=== PATIENT | female | born 1945 | race Caucasian/White ===

== ENCOUNTER → 2016-10-07 | Outpatient (CLI) | payer OTHER ==
[~2016-10-07] MED LIST: ASPCH81X PO; BNT10 PO; BUPR100T8 PO; CIPR250T3 PO; CPR500 PO; CRAN1TAB PO; CYAN3INJ IM; ESCI1TAB10 PO; LINA1CAP PO; LPT40 PO; METF-384 PO; MISCCAP80 PO; NYSCR30 EXT; TRAZ50TA35 PO; VSC/5 PO; ZNT150 PO
--- NOTE | 2016-10-07 11:04 | DIAGNOSTIC IMAGING REPORT ---
KUB CLINICAL HISTORY: N20.0 [id number] COMPARISON STUDY: 03/24/2016 FINDINGS: The renal shadows are partially secured by overlying bowel gas and fecal material. There is no pathologic bowel dilatation. There is a stable right pelvic basin calcification likely representing a phlebolith. There is a 5 mm left renal calcification likely representing a calculus. IMPRESSION: 1. Left-sided nephrolithiasis 2. No evidence of pathologic bowel dilatation Electronically signed by: Moses Hutchison M.D. 10/07/2016 11:02 AM Dictated Date/Time: 10/07/2016 11:01 AM
== END | disposition home or self-care (01) ==
LOC: C.RAD 10:25
PROVIDERS: ATTEND Nurse Practitioner Family
DX: N20.0 Calculus of kidney (principal)

== ENCOUNTER 2017-03-31 11:13 | Inpatient (IN) | payer OTHER ==
[~2017-03-31] VITALS: Ht 160 cm; Wt 72.0 kg
[~2017-03-31 11:13] MED LIST changes: -BNT10 PO; -CIPR250T3 PO; -CPR500 PO; -ZNT150 PO
[2017-03-31] MEDS ORDERED: SODIUM CHLORIDE 0.9% 1000ML 1,000 ML IV STA (11:33)
[2017-03-31] MEDS ORDERED: CIPR250T3 PO (11:35)
--- NOTE | 2017-03-31 12:20 | DIAGNOSTIC IMAGING REPORT ---
CHEST ONE VIEW PORTABLE CLINICAL HISTORY: Flu symptoms. COMPARISON STUDY: Chest radiograph March 24, 2016. FINDINGS: Lung volumes are normal. No consolidation is identified. No pneumothorax or pleural effusion is present. Cardiomediastinal silhouette is stable. Pulmonary vascularity is normal. IMPRESSION: No acute cardiopulmonary findings. Electronically signed by: Chris Rivera M.D. 03/31/2017 12:19 PM Dictated Date/Time: 03/31/2017 12:19 PM
[2017-03-31 12:29] LABS: BASO % 0.5 %; BASO ABS # 0.05 K/uL (0-0.2); COMPLETE YES; EOS % 1.7 %; HEMATOCRIT 36.2 % (37-47); IG% 0.3 %; LYMPH % 22.5 %; LYMPH ABS # 2.44 K/uL (1.2-3.4); MEAN CELL VOLUME 87.2 fL (80-100); MEAN CORPUSCULAR HEMOGLOBIN 29.6 pg (25-34); MEAN PLATELET VOLUME 8.7 fL (7.4-10.4); MONO % 7.7 %; NEUT % 67.3 %; PLATELET COUNT 332 K/uL (130-400); RED BLOOD COUNT 4.15 M/uL (4.2-5.4); WHITE BLOOD COUNT 10.85 K/uL (4.8-10.8)
[2017-03-31 12:42] LABS: PROTHROMBIN TIME (PATIENT) 10.3 SECONDS (9.0-12.0)
[2017-03-31 12:47] LABS: BUN/CREATININE RATIO 17.3 (10-20); CALCIUM 8.8 mg/dl (8.5-10.1); CREATININE 1.3 mg/dl (0.60-1.20); MAGNESIUM 1.6 mg/dl (1.8-2.4); POTASSIUM 4.2 mmol/L (3.5-5.1)
[2017-03-31 12:58] LABS: THYROID STIMULATING HORMONE 1.57 uIu/ml (0.300-4.500)
--- NOTE | 2017-03-31 13:43 | EMERGENCY ROOM VISIT NOTE ---
History Report prepared by Derrick: Zack Etienne Under the Supervision of: Dr. Miguel Ángel Amezquita M.D. First contact with patient: 11:33 Chief Complaint: FLU LIKE SX Stated Complaint: FLU History of Present Illness The patient is a 71 year old female who presents to the Emergency Room with complaints of constant flu-like symptoms for the past 6 days. The patient states that she is fatigued, dizzy, nauseous, weak, short of breath and she has back pain, abdominal pain, chest pain. She additionally states that she is currently on Cipro for a bladder infection and she has kidney stones. She is not currently on blood thinners. The patient states that she has not been able to eat very well due to the nausea. Pt denies LOC, headache, fevers, chills, diaphoresis, visual changes, neck pain, cough, vomiting, melena, hematochezia, urinary symptoms, numbness, lymphadenopathy, rash, or other complaints. Source of History: patient Onset: six days ago Position: other (global) Quality: other (flu-like symptoms) Timing: constant Associated Symptoms: + chest pain, + SOB, + nausea, + abdominal pain, + back pain, + fatigue Review of Systems See HPI for pertinent positives and negatives. A total of ten systems were reviewed and were otherwise negative. 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 (13) Hypertension Nos (14) Hypomagnesemia (15) Kidney stone (16) Nephrolithiasis (17) Neuropathy (18) Personal History Of Colonic Polyps (19) PICC line infection (20) Pyelonephritis (21) Renal & Ureteral Dis Nos (22) Right knee pain (23) Sepsis (24) Urinary tract infection (25) Urinary tract infection (26) Urinary tract infection (27) Urinary tract infection (28) UTI (urinary tract infection) Surgical Problems: (1) Post-operative state Family History Diabetes mellitus FH: gallbladder disease FH: heart disease Hypertension Social History Smoking Status: Never Smoker Alcohol Use: occasionally Drug Use: none Marital Status: Housing Status: lives with family Occupation Status: retired Current/Historical Medications Scheduled Aspirin (Aspirin Chewable), 81 MG PO QAM Atorvastatin (Atorvastatin Calcium), 40 MG PO HS Bupropion (Wellbutrin Sr), 100 MG PO QAM Ciprofloxacin (Cipro), 250 MG PO BID Cyanocobalamin (Vitamin B-12 Inj), 1 ML IM MONTHLY Escitalopram Oxalate (Lexapro), 20 MG PO QAM Linaclotide (Linzess), 145 MCG PO DAILY Metformin Hcl (Glucophage), 1,000 MG PO BID Probiotic Product (Probiotic), 1 CAP PO QAM Trazodone Hcl (Trazodone), 50 MG PO HS Scheduled PRN Nystatin (Nystatin Cream), 0 EXT UD PRN for PRN Solifenacin (Vesicare), 5 MG PO QAM PRN for PRN Allergies Coded Allergies: Erythromycin (Verified Adverse Reaction, Unknown, NAUSEATED, 03/31/17) Hydrocodone (Verified Adverse Reaction, Unknown, DIZZINESS, FAINTING, ) Meperidine (Verified Adverse Reaction, Unknown, DROP IN BP, FAINTING, ) Sulfamethoxazole w/Trimethoprim (Verified Adverse Reaction, Unknown, GI SYMPTOMS, 03/31/17) Physical Exam Vital Signs Date Time Temp Pulse Resp B/P (MAP) Pulse Ox O2 Delivery O2 Flow Rate FiO2 03/31/17 16:41 Room Air 03/31/17 16:18 80 18 156/83 98 Room Air 03/31/17 13:50 88 18 132/82 95 Room Air 03/31/17 12:17 86 132/76 88 137/88 105 117/75 03/31/17 11:17 36.6 113 20 131/80 96 Room Air Physical Exam GENERAL: Awake, alert, uncomfortable-appearing, in no distress HENT: TMs are normal. Normocephalic, atraumatic. Oropharynx unremarkable. EYES: Normal conjunctiva. Sclera non-icteric. NECK: Supple. No nuchal rigidity. FROM. No JVD. RESPIRATORY: Clear to auscultation. CARDIAC: Regular rate, normal rhythm. Extremities warm and well perfused. Pulses equal. ABDOMEN: Soft, non-distended. No tenderness to palpation. No rebound or guarding. No masses. RECTAL: Deferred. MUSCULOSKELETAL: Chest examination reveals no tenderness. The back is symmetrical on inspection without obvious abnormality. There is no CVA tenderness to palpation. No joint edema. LOWER EXTREMITIES: Calves are equal size bilaterally and non-tender. No edema. No discoloration. NEURO: Normal sensorium. No sensory or motor deficits noted. SKIN: No rash or jaundice noted. Medical Decision & Procedures ER Provider Diagnostic Interpretation: Radiology results as stated below per my review and radiologist interpretation: CHEST ONE VIEW PORTABLE CLINICAL HISTORY: Flu symptoms. COMPARISON STUDY: Chest radiograph March 24, 2016. FINDINGS: Lung volumes are normal. No consolidation is identified. No pneumothorax or pleural effusion is present. Cardiomediastinal silhouette is stable. Pulmonary vascularity is normal. IMPRESSION: No acute cardiopulmonary findings. Electronically signed by: Chris Rivera M.D. 03/31/2017 12:19 PM Dictated Date/Time: 03/31/2017 12:19 PM ABD/PELVIS WITHOUT FOR STONE CLINICAL HISTORY: 71 years-old Female presenting with back pain, UTI, h/o stones. TECHNIQUE: Multidetector CT of the abdomen and pelvis was performed without the use of intravenous contrast. IV contrast: None. A dose lowering technique was used consistent with the principles of ALARA (as low as reasonably achievable). COMPARISON: 12/05/2015. CT DOSE (mGy.cm): The estimated cumulative dose is 637.00 mGycm. FINDINGS: Camera Tuning Engineer topogram: Unremarkable. Lung bases: Minimal dependent changes likely atelectasis. Mitral annular calcification. Normal heart size. No pericardial or pleural effusion. Liver: Normal morphology. Normal density. Biliary: Mild prominence of central intrahepatic bile ducts. Gallbladder may contain sludge. Pancreas: Mild parenchymal atrophy. Spleen: Normal noncontrast appearance. Adrenal glands: Normal noncontrast appearance. Kidneys and ureters: Chronic atrophy of the left renal cortex most prominently at the posterior upper pole, which could suggest reflux uropathy. Bilateral mild urothelial thickening noted. Bilateral nonobstructing renal calculi, the largest on the right measuring 4 mm and on the left measuring 6 mm. Subcentimeter focal hyperdense lesion posteriorly at the interpolar to lower pole of the right kidney is unchanged in size (series 3 image 150), measuring 7 mm. No hydronephrosis. Previously noted obstructing calculus in the proximal left ureter is no longer present. No hydroureter or periureteral fat stranding. Bladder: Normal. No bladder calculi. Pelvic organs: Calcification in the uterus may relate to presence of fibroids or vascular calcification. Normal noncontrast appearance of the ovaries. Bowel: Diverticulosis of the sigmoid colon. Mild stool burden throughout normal caliber colon. Normal appendix. No bowel obstruction. Prominent duodenal diverticulum the level of the pancreatic head. No associated inflammatory change. Peritoneal cavity: No free fluid or intraperitoneal gas. Lymph nodes: No gross lymphadenopathy allowing for noncontrast technique. Vasculature: Atherosclerosis of the normal caliber abdominal aorta. Abdominal wall: Normal. Musculoskeletal: Degenerative changes of the spine. Mild osteopenia. IMPRESSION: 1. Bilateral nephrolithiasis. No hydronephrosis. Previously noted obstructing proximal left ureteral calculus is no longer present. 2. Suggestion of mild urothelial thickening bilaterally. This raises concern for upper tract infection. Correlate with urinalysis. 3. Extensive left renal cortical scarring which could suggest reflux uropathy. Electronically signed by: Randy Graham M.D. 03/31/2017 3:23 PM Dictated Date/Time: 03/31/2017 3:14 PM Laboratory Results 03/31/17 12:01 Red Blood Count 4.15, Mean Corpuscular Volume 87.2, Mean Corpuscular Hemoglobin 29.6, Mean Corpuscular Hemoglobin Concent 34.0, Mean Platelet Volume 8.7, Neutrophils (%) (Auto) 67.3, Lymphocytes (%) (Auto) 22.5, Monocytes (%) (Auto) 7.7, Eosinophils (%) (Auto) 1.7, Basophils (%) (Auto) 0.5, Neutrophils # (Auto) 7.31, Lymphocytes # (Auto) 2.44, Monocytes # (Auto) 0.84, Eosinophils # (Auto) 0.18, Basophils # (Auto) 0.05 03/31/17 12:01 Test 03/31/17 12:00 03/31/17 12:01 03/31/17 14:00 Influenza Type A Antigen Neg for Influ A (NEG) Influenza Type B Antigen Neg for Influ B (NEG) White Blood Count 10.85 K/uL (4.8-10.8) Red Blood Count 4.15 M/uL (4.2-5.4) Hemoglobin 12.3 g/dL (12.0-16.0) Hematocrit 36.2 % (37-47) Mean Corpuscular Volume 87.2 fL (80-100) Mean Corpuscular Hemoglobin 29.6 pg (25-34) Mean Corpuscular Hemoglobin Concent 34.0 g/dl (32-36) Platelet Count 332 K/uL (130-400) Mean Platelet Volume 8.7 fL (7.4-10.4) Neutrophils (%) (Auto) 67.3 % Lymphocytes (%) (Auto) 22.5 % Monocytes (%) (Auto) 7.7 % Eosinophils (%) (Auto) 1.7 % Basophils (%) (Auto) 0.5 % Neutrophils # (Auto) 7.31 K/uL (1.4-6.5) Lymphocytes # (Auto) 2.44 K/uL (1.2-3.4) Monocytes # (Auto) 0.84 K/uL (0.11-0.59) Eosinophils # (Auto) 0.18 K/uL (0-0.5) Basophils # (Auto) 0.05 K/uL (0-0.2) RDW Standard Deviation 43.8 fL (36.4-46.3) RDW Coefficient of Variation 13.6 % (11.5-14.5) Immature Granulocyte % (Auto) 0.3 % Immature Granulocyte # (Auto) 0.03 K/uL (0.00-0.02) Prothrombin Time 10.3 SECONDS (9.0-12.0) Prothromb Time International Ratio 1.0 (0.9-1.1) Activated Partial Thromboplast Time 25.5 SECONDS (21.0-31.0) Partial Thromboplastin Ratio 1.0 Anion Gap 9.0 mmol/L (3-11) Est Creatinine Clear Calc Drug Dose 38.8 ml/min Estimated GFR () 48.5 Estimated GFR (Non- 41.8 BUN/Creatinine Ratio 17.3 (10-20) Calcium Level 8.8 mg/dl (8.5-10.1) Magnesium Level 1.6 mg/dl (1.8-2.4) Total Bilirubin 0.4 mg/dl (0.2-1) Direct Bilirubin 0.1 mg/dl (0-0.2) Aspartate Amino Transf (AST/SGOT) 11 U/L (15-37) Alanine Aminotransferase (ALT/SGPT) 13 U/L (12-78) Alkaline Phosphatase 74 U/L (45-117) Troponin I 0.038 ng/ml (0-0.045) Total Protein 7.3 gm/dl (6.4-8.2) Albumin 3.5 gm/dl (3.4-5.0) Lipase 159 U/L (73-393) Thyroid Stimulating Hormone (TSH) 1.570 uIu/ml (0.300-4.500) Urine Color YELLOW Urine Appearance CLEAR (CLEAR) Urine pH 5.0 (4.5-7.5) Urine Specific [place] 1.016 (1.000-1.030) Urine Protein NEG (NEG) Urine Glucose (UA) NEG (NEG) Urine Ketones NEG (NEG) Urine Occult Blood NEG (NEG) Urine Nitrite NEG (NEG) Urine Bilirubin NEG (NEG) Urine Urobilinogen NEG (NEG) Urine Leukocyte Esterase LARGE (NEG) Urine WBC (Auto) 10-30 /hpf (0-5) Urine RBC (Auto) 0-4 /hpf (0-4) Urine Hyaline Casts (Auto) 1-5 /lpf (0-5) Urine Epithelial Cells (Auto) >30 /lpf (0-5) Urine Bacteria (Auto) NEG (NEG) Laboratory results reviewed by me Medications Administered Medications (Trade) Dose Ordered Sig/Miah Route Start Time Stop Time Status Last Admin Dose Admin Sodium Chloride 1,000 ml @ 125 mls/hr Q8H STAT IV 03/31/17 11:33 03/31/17 18:36 DC 03/31/17 11:33 125 MLS/HR Ceftriaxone Sodium (Rocephin Inj) 1 gm NOW STAT IV 03/31/17 15:32 03/31/17 15:33 DC 03/31/17 15:44 1 GM Ondansetron HCl (Zofran Inj) 4 mg Q6H PRN IV 03/31/17 17:00 04/30/17 16:59 03/31/17 18:12 4 MG Magnesium Sulfate (Magnesium Sulfate) 1 gm STK-MED ONCE .ROUTE 03/31/17 17:09 03/31/17 17:10 DC 03/31/17 17:13 1 GM ECG Indication: other (flu-like symptoms) Rate (beats per minute): 100 Rhythm: normal sinus Findings: nonspecific-ST abn, no acute ischemic change, no ectopy ED Course 1133: Sodium Chloride 1000 ml @ 125 mls/hr IV 1153: The patient was evaluated in room C8. A complete history and physical exam was performed. 1347: I reevaluated the patient, and she was resting comfortably. 1532: Rocephin Inj 1gm IV 1610: Upon reexamination, the patient was doing well. I discussed the test results and treatment plan with her. The patient will be evaluated for further management. 1659: Discussed the patient's case with Dr. Broussard. The patient will be evaluated for further treatment and disposition. Medical Decision Triage Nursing notes reviewed. The patient's presentation and history were concerning for flu like symptoms. Etiologies such as viral syndrome, otitis, pharyngitis, pneumonia, urinary tract infection, sepsis, bacteremia, meningitis, as well as others were entertained. Patient was evaluated. Blood work was obtained. Urinalysis ordered. The patient was hydrated. Records were obtained from his her outpatient urinalysis. She has a Klebsiella UTI that is reported sensitive to Cipro. Slight leukocytosis. Chemistry panel was unremarkable. she underwent CT imaging and this revealed findings of an upper urinary tract infection. Given her pain, nausea and vomiting, and known UTI with Klebsiella I suspect that she has a pyelonephritis. The patient was given a dose of IV Rocephin. She notes she is not doing well at home and I believe will need further evaluation and management in hospital. Consultation was made with the hospitalist service. The patient was evaluated for further management. Medication Reconcilliation Current Medication List: was personally reviewed by me Blood Pressure Screening Patient's blood pressure: Elevated blood pressure Monitored by the hospitalist Consults Time Called: 161 Consulting Physician: Dr. Broussard Returned Call: [phone] Discussed the patient's case with Dr. Broussard. The patient will be evaluated for further treatment and disposition. Impression Primary Impression: Pyelonephritis Scribe Attestation The scribe's documentation has been prepared under my direction and personally reviewed by me in its entirety. I confirm that the note above accurately reflects all work, treatment, procedures, and medical decision making performed by me. Departure Information Dispostion Being Evaluated By Hospitalist Referrals No Doctor, Assigned (PCP) Patient Instructions My [facility]
[2017-03-31 14:09] LABS: MANUAL MICROSCOPIC REQUIRED? NO; REVIEW REQ? NO; URINE APPEARANCE CLEAR (CLEAR); URINE BILIRUBIN NEG (NEG); URINE COLOR YELLOW; URINE EPITHELIAL CELL AUTO >30 /lpf (0-5); URINE NITRITE NEG (NEG); URINE SPECIFIC GRAVITY 1.016 (1.000-1.030); UROBILINOGEN NEG (NEG)
--- NOTE | 2017-03-31 15:24 | DIAGNOSTIC IMAGING REPORT ---
ABD/PELVIS WITHOUT FOR STONE CLINICAL HISTORY: 71 years-old Female presenting with back pain, UTI, h/o stones. TECHNIQUE: Multidetector CT of the abdomen and pelvis was performed without the use of intravenous contrast. IV contrast: None. A dose lowering technique was used consistent with the principles of ALARA (as low as reasonably achievable). COMPARISON: 12/05/2015. CT DOSE (mGy.cm): The estimated cumulative dose is 637.00 mGycm. FINDINGS: Edi Manager topogram: Unremarkable. Lung bases: Minimal dependent changes likely atelectasis. Mitral annular calcification. Normal heart size. No pericardial or pleural effusion. Liver: Normal morphology. Normal density. Biliary: Mild prominence of central intrahepatic bile ducts. Gallbladder may contain sludge. Pancreas: Mild parenchymal atrophy. Spleen: Normal noncontrast appearance. Adrenal glands: Normal noncontrast appearance. Kidneys and ureters: Chronic atrophy of the left renal cortex most prominently at the posterior upper pole, which could suggest reflux uropathy. Bilateral mild urothelial thickening noted. Bilateral nonobstructing renal calculi, the largest on the right measuring 4 mm and on the left measuring 6 mm. Subcentimeter focal hyperdense lesion posteriorly at the interpolar to lower pole of the right kidney is unchanged in size (series 3 image 150), measuring 7 mm. No hydronephrosis. Previously noted obstructing calculus in the proximal left ureter is no longer present. No hydroureter or periureteral fat stranding. Bladder: Normal. No bladder calculi. Pelvic organs: Calcification in the uterus may relate to presence of fibroids or vascular calcification. Normal noncontrast appearance of the ovaries. Bowel: Diverticulosis of the sigmoid colon. Mild stool burden throughout normal caliber colon. Normal appendix. No bowel obstruction. Prominent duodenal diverticulum the level of the pancreatic head. No associated inflammatory change. Peritoneal cavity: No free fluid or intraperitoneal gas. Lymph nodes: No gross lymphadenopathy allowing for noncontrast technique. Vasculature: Atherosclerosis of the normal caliber abdominal aorta. Abdominal wall: Normal. Musculoskeletal: Degenerative changes of the spine. Mild osteopenia. IMPRESSION: 1. Bilateral nephrolithiasis. No hydronephrosis. Previously noted obstructing proximal left ureteral calculus is no longer present. 2. Suggestion of mild urothelial thickening bilaterally. This raises concern for upper tract infection. Correlate with urinalysis. 3. Extensive left renal cortical scarring which could suggest reflux uropathy. Electronically signed by: Randy Graham M.D. 03/31/2017 3:23 PM Dictated Date/Time: 03/31/2017 3:14 PM
[2017-03-31] MEDS ORDERED: CEFTRIAXONE SOD INJ 1 GM ADDVIAL IV STA (15:32)
[2017-03-31 16:41] VITALS: Ht 160 cm; Wt 72.0 kg
[2017-03-31] MEDS ORDERED: MAGNESIUM HYDROXIDE SUSP 30 ML UDC PO PRN (17:00)
[2017-03-31] MEDS ORDERED: POLYETHYLENE (MIRALAX) 17 GM PACK PO PRN (17:00)
[2017-03-31] MEDS ORDERED: ALUMINUM/MAGNESIUM/SIMETH (MAALOX MAX) 30 ML UDC PO PRN (17:00)
[2017-03-31] MEDS ORDERED: NYSTATIN CR 15 GM TUBE EXT PRN (17:00)
[2017-03-31] MEDS ORDERED: MAGNESIUM SULFATE 1GM / D5W 1 GM in PREMIXED IN D5W 100 ML IV ONE (17:00)
[2017-03-31] MEDS ORDERED: MAGNESIUM SULFATE 1GM / D5W 1 GM BAG ONE (17:09)
[2017-03-31] MEDS ORDERED: GLUCOSE 40% GEL 15 GM TUBE PO PRN (17:15)
[2017-03-31] MEDS ORDERED: GLUCAGON FOR INJ 1 MG VIAL SQ PRN (17:15)
[2017-03-31] MEDS ORDERED: DEXTROSE 50% 50 ML SYR IV PRN (17:15)
[2017-03-31] MEDS ORDERED: GLUCOSE 10 TABS/TUBE PO PRN (17:15)
--- NOTE | 2017-03-31 17:28 | History and Physical ---
History & Physical Date & Time of Service: Mar 31, 2017 at 17:04 Chief Complaint: FLU Primary Care Physician: Patricia Davison M.D. History of Present Illness Source: patient, family ( at bedside), clinic records, hospital records Patient is a pleasant 71 y/o female, with PMHx of HLD, T2DM, anxiety/depression , recurrent UTI, h/o kidney stones, and GERD, who presented to the ED because of flu-like symptoms x1 week. Patient notes fever/chills, abdominal cramping, N/ V/D. She notes she has a h/o recurrent UTIs. She is most recently being treated with Cipro since 03/27 by her PCP for a Klebsiella pansensitive UTI. She notes she has not been consistent w/ taking the antibiotic due to abdominal pain, N/ V. She denies any current UTI symptoms, but states she never gets symptomatic. She has eaten very little over the last weeks and admits to a 6 pound weight loss. She has had excessive diarrhea x1 week. Denies any melena/blood. She denies h/o c.diff. She recently had a dental procedure 1 month ago. She has not received her correct dentures yet, so eating has become very difficulty- she has only been eating soft foods prior to 1 week ago. She also admits to dizziness w/ changing positions quickly. Her notes many of their friends recently had a viral illness w/ associate dizziness. +diffuse body aches. +weakness. Denies any flank discomfort. Patient denies any sweats, lightheadedness, vision changes, CP, palpitations, edema, SOB, wheezing, cough, urinary symptoms, melena, numbness/tingling, anxiety/depression, active bleeding , or new skin discoloration/changes. Past Medical/Surgical History Medical Problems: HLD T2DM anxiety/depression recurrent UTI h/o kidney stones GERD h/o DVT Surgical history: Left TKA tonsillectomy lumpectomy Family History Diabetes mellitus FH: gallbladder disease FH: heart disease Hypertension Social History Smoking Status: Never Smoker Smokeless Tobacco Use: No Alcohol Use: socially Drug Use: none Marital Status: Housing status: lives with family Occupational Status: retired Immunizations History of Influenza Vaccine: Yes Influenza Vaccine Date: Mar 31, 2012 History of Tetanus Vaccine?: Unknown History of Pneumococcal: Yes Pneumococcal Date: Mar 31, 2012 History of Hepatitis B Vaccine: No Multi-Drug Resistant Organisms History of MDRO: No Allergies Coded Allergies: Erythromycin (Verified Adverse Reaction, Unknown, NAUSEATED, 03/31/17) Hydrocodone (Verified Adverse Reaction, Unknown, DIZZINESS, FAINTING, ) Meperidine (Verified Adverse Reaction, Unknown, DROP IN BP, FAINTING, ) Sulfamethoxazole w/Trimethoprim (Verified Adverse Reaction, Unknown, GI SYMPTOMS, 03/31/17) Home Medications Scheduled Aspirin (Aspirin Chewable), 81 MG PO QAM Atorvastatin (Atorvastatin Calcium), 40 MG PO HS Bupropion (Wellbutrin Sr), 100 MG PO QAM Ciprofloxacin (Cipro), 250 MG PO BID Cyanocobalamin (Vitamin B-12 Inj), 1 ML IM MONTHLY Escitalopram Oxalate (Lexapro), 20 MG PO QAM Linaclotide (Linzess), 145 MCG PO DAILY Metformin Hcl (Glucophage), 1,000 MG PO BID Probiotic Product (Probiotic), 1 CAP PO QAM Trazodone Hcl (Trazodone), 50 MG PO HS Scheduled PRN Nystatin (Nystatin Cream), 0 EXT UD PRN for PRN Solifenacin (Vesicare), 5 MG PO QAM PRN for PRN Physical Exam Vital Signs Date Time Temp Pulse Resp B/P (MAP) Pulse Ox O2 Delivery O2 Flow Rate FiO2 03/31/17 16:41 Room Air 03/31/17 16:18 80 18 156/83 98 Room Air 03/31/17 13:50 88 18 132/82 95 Room Air 03/31/17 12:17 86 132/76 88 137/88 105 117/75 03/31/17 11:17 36.6 113 20 131/80 96 Room Air General Appearance: no apparent distress Head: normocephalic, atraumatic Eyes: normal inspection, PERRL ENT: hearing grossly normal Neck: supple Respiratory/Chest: lungs clear, no respiratory distress, no accessory muscle use Cardiovascular: regular rate, rhythm Abdomen/GI: normal bowel sounds, soft, + tenderness (diffuse mild ttp ) Back: normal inspection Extremities/Musculoskelatal: no calf tenderness, no pedal edema Neurologic/Psych: alert, normal mood/affect, oriented x 3 Skin: normal color, warm/dry, no rash Diagnostics Laboratory Results Results Past 24 Hours Test 03/31/17 12:00 03/31/17 12:01 03/31/17 14:00 Range/Units Influenza Type A Antigen Neg for Influ A NEG Influenza Type B Antigen Neg for Influ B NEG White Blood Count 10.85 4.8-10.8 K/uL Red Blood Count 4.15 4.2-5.4 M/uL Hemoglobin 12.3 12.0-16.0 g/dL Hematocrit 36.2 37-47 % Mean Corpuscular Volume 87.2 80-100 fL Mean Corpuscular Hemoglobin 29.6 25-34 pg Mean Corpuscular Hemoglobin Concent 34.0 32-36 g/dl Platelet Count 332 130-400 K/uL Mean Platelet Volume 8.7 7.4-10.4 fL Neutrophils (%) (Auto) 67.3 % Lymphocytes (%) (Auto) 22.5 % Monocytes (%) (Auto) 7.7 % Eosinophils (%) (Auto) 1.7 % Basophils (%) (Auto) 0.5 % Neutrophils # (Auto) 7.31 1.4-6.5 K/uL Lymphocytes # (Auto) 2.44 1.2-3.4 K/uL Monocytes # (Auto) 0.84 0.11-0.59 K/uL Eosinophils # (Auto) 0.18 0-0.5 K/uL Basophils # (Auto) 0.05 0-0.2 K/uL RDW Standard Deviation 43.8 36.4-46.3 fL RDW Coefficient of Variation 13.6 11.5-14.5 % Immature Granulocyte % (Auto) 0.3 % Immature Granulocyte # (Auto) 0.03 0.00-0.02 K/uL Prothrombin Time 10.3 9.0-12.0 SECONDS Prothromb Time International Ratio 1.0 0.9-1.1 Activated Partial Thromboplast Time 25.5 21.0-31.0 SECONDS Partial Thromboplastin Ratio 1.0 Sodium Level 138 136-145 mmol/L Potassium Level 4.2 3.5-5.1 mmol/L Chloride Level 105 98-107 mmol/L Carbon Dioxide Level 24 21-32 mmol/L Anion Gap 9.0 3-11 mmol/L Blood Urea Nitrogen 22 7-18 mg/dl Creatinine 1.30 0.60-1.20 mg/dl Est Creatinine Clear Calc Drug Dose 38.8 ml/min Estimated GFR () 48.5 Estimated GFR (Non- 41.8 BUN/Creatinine Ratio 17.3 10-20 Random Glucose 92 70-99 mg/dl Calcium Level 8.8 8.5-10.1 mg/dl Magnesium Level 1.6 1.8-2.4 mg/dl Total Bilirubin 0.4 0.2-1 mg/dl Direct Bilirubin 0.1 0-0.2 mg/dl Aspartate Amino Transf (AST/SGOT) 11 15-37 U/L Alanine Aminotransferase (ALT/SGPT) 13 12-78 U/L Alkaline Phosphatase 74 45-117 U/L Troponin I 0.038 0-0.045 ng/ml Total Protein 7.3 6.4-8.2 gm/dl Albumin 3.5 3.4-5.0 gm/dl Lipase 159 73-393 U/L Thyroid Stimulating Hormone (TSH) 1.570 0.300-4.500 uIu/ml Urine Color YELLOW Urine Appearance CLEAR CLEAR Urine pH 5.0 4.5-7.5 Urine Specific [place] 1.016 1.000-1.030 Urine Protein NEG NEG Urine Glucose (UA) NEG NEG Urine Ketones NEG NEG Urine Occult Blood NEG NEG Urine Nitrite NEG NEG Urine Bilirubin NEG NEG Urine Urobilinogen NEG NEG Urine Leukocyte Esterase LARGE NEG Urine WBC (Auto) 10-30 0-5 /hpf Urine RBC (Auto) 0-4 0-4 /hpf Urine Hyaline Casts (Auto) 1-5 0-5 /lpf Urine Epithelial Cells (Auto) >30 0-5 /lpf Urine Bacteria (Auto) NEG NEG Microbiology Results 03/31/17 Urine Culture, Received Pending Diagnostic Radiology ABD/PELVIS WITHOUT FOR STONE CLINICAL HISTORY: 71 years-old Female presenting with back pain, UTI, h/o stones. TECHNIQUE: Multidetector CT of the abdomen and pelvis was performed without the use of intravenous contrast. IV contrast: None. A dose lowering technique was used consistent with the principles of ALARA (as low as reasonably achievable). COMPARISON: 12/05/2015. CT DOSE (mGy.cm): The estimated cumulative dose is 637.00 mGycm. FINDINGS: Commissioned Sales Associate topogram: Unremarkable. Lung bases: Minimal dependent changes likely atelectasis. Mitral annular calcification. Normal heart size. No pericardial or pleural effusion. Liver: Normal morphology. Normal density. Biliary: Mild prominence of central intrahepatic bile ducts. Gallbladder may contain sludge. Pancreas: Mild parenchymal atrophy. Spleen: Normal noncontrast appearance. Adrenal glands: Normal noncontrast appearance. Kidneys and ureters: Chronic atrophy of the left renal cortex most prominently at the posterior upper pole, which could suggest reflux uropathy. Bilateral mild urothelial thickening noted. Bilateral nonobstructing renal calculi, the largest on the right measuring 4 mm and on the left measuring 6 mm. Subcentimeter focal hyperdense lesion posteriorly at the interpolar to lower pole of the right kidney is unchanged in size (series 3 image 150), measuring 7 mm. No hydronephrosis. Previously noted obstructing calculus in the proximal left ureter is no longer present. No hydroureter or periureteral fat stranding. Bladder: Normal. No bladder calculi. Pelvic organs: Calcification in the uterus may relate to presence of fibroids or vascular calcification. Normal noncontrast appearance of the ovaries. Bowel: Diverticulosis of the sigmoid colon. Mild stool burden throughout normal caliber colon. Normal appendix. No bowel obstruction. Prominent duodenal diverticulum the level of the pancreatic head. No associated inflammatory change. Peritoneal cavity: No free fluid or intraperitoneal gas. Lymph nodes: No gross lymphadenopathy allowing for noncontrast technique. Vasculature: Atherosclerosis of the normal caliber abdominal aorta. Abdominal wall: Normal. Musculoskeletal: Degenerative changes of the spine. Mild osteopenia. IMPRESSION: 1. Bilateral nephrolithiasis. No hydronephrosis. Previously noted obstructing proximal left ureteral calculus is no longer present. 2. Suggestion of mild urothelial thickening bilaterally. This raises concern for upper tract infection. Correlate with urinalysis. 3. Extensive left renal cortical scarring which could suggest reflux uropathy. Electronically signed by: Randy Graham M.D. 03/31/2017 3:23 PM Dictated Date/Time: 03/31/2017 3:14 PM The status of this report is Signed. Draft = Not yet reviewed or approved by Radiologist. Signed = Reviewed and approved by Radiologist. CHEST ONE VIEW PORTABLE CLINICAL HISTORY: Flu symptoms. COMPARISON STUDY: Chest radiograph March 24, 2016. FINDINGS: Lung volumes are normal. No consolidation is identified. No pneumothorax or pleural effusion is present. Cardiomediastinal silhouette is stable. Pulmonary vascularity is normal. IMPRESSION: No acute cardiopulmonary findings. Electronically signed by: Chris Rivera M.D. 03/31/2017 12:19 PM Dictated Date/Time: 03/31/2017 12:19 PM The status of this report is Signed. Draft = Not yet reviewed or approved by Radiologist. Signed = Reviewed and approved by Radiologist. EKG SYBIL CACERES ID:[id number] 31-MAR-2017 11:46:55 [facility] Poor data quality, interpretation may be adversely affected Normal sinus rhythm Nonspecific ST abnormality Abnormal ECG When compared with ECG of 24-MAR-2016 10:35, Minimal criteria for Inferior infarct are no longer Present Confirmed by Pineda Beltrán ([id number]) on 03/31/2017 12:06:38 PM 25mm/s 10mm/mV 150Hz 8.0 SP2 12SL 241 HD [place]: 12 Referred by: Confirmed By: Pineda Beltrán Vent. rate 100 BPM KS interval 126 ms QRS duration 80 ms QT/QTc 364/469 ms P-R-T axes 69 2 45 1947 (71 yr) Female 80in 1lb Room: Loc:15 Filler Room Attendant:GUY Woody ind: Impression Assessment and Plan Patient is a pleasant 71 y/o female, with PMHx of HLD, T2DM, anxiety/depression , recurrent UTI, h/o kidney stones, and GERD, who presented to the ED because of flu-like symptoms x1 week. Pansensitive Klebsiella UTI w/ ?pyleo: - Admit to med/surg - IVF - IV Rocephin started in ED, continue at admission - Continue Probiotic - UCx and BCx pending - IV Zofran PRN - Follow CBC and PRP - Negative flu swab Diarrhea: Check stool cultures and c.diff study Dizziness: Check orthostatic BPs GABRIEL: IV NSS @ 100 ml/hr Hypomagnesemia, like secondary to diarrhea: IV 1gm Mag x1; follow mag level and replace PRN Anxiety/depression: Continue Wellbutrin 100 mg daily, Lexapro 20 mg daily, Trazodone 50 mg HS T2DM: - Hold Metformin 1000 mg BID - BSG ACHS and sliding insulin scale HLD: Continue Lipitor Chronic constipation: Hold Linzess due to diarrhea b12 deficiency: Continue b12 monthly injections DVT prophylaxis: Heparin SQ TID Code Status: LEVEL I, FULL Dispo: From home, lives w/ - CM and PT/OT consulted Attending Addendum: I have physically seen and examined this patient, have directed the physician assistants medical activities, and agree with the H&P as noted above with the following exceptions as noted. The patient is awake, alert and oriented 3, well-developed and well-nourished , normocephalic and atraumatic, lying in bed and in no acute distress. HEENT--PERRL, EOMI, mucous membranes and oropharynx dry. Neck--supple, no JVD or bruits, thyroid normal, trachea midline, no adenopathy. Heart--normal S1 and S2, no extra beats, no murmurs, rubs or gallops. Lungs--clear bilaterally with good air movement, no respiratory distress, no accessory muscle use. Abdomen--normal bowel sounds and soft. Tender mild and diffusely, Nondistended, no hernias or masses, no organomegaly. Extremities--no cyanosis, clubbing or edema. There are good distal pulses b/l. Dermatologic--normal skin turgor, normal color, warm and dry, no abnormal lymph nodes, no rash. Neurologic--cranial nerves II through XII grossly intact. Rheumatologic--normal range of motion, nontender, muscles and joints. Psychiatric--normal affect. Assessment and Plan: Klebsiella pyelonephritis-- Admit to MedSurg IV fluids, NSS at 100 mils per hour Ceftriaxone 1 g IV daily. Floranex 4 g by mouth 4 times a day. Follow urine culture and blood cultures Zofran 4 mg IV every 6 hours when necessary. Daily labs. Diabetes mellitus-- Hold metformin Impression extra before meals and at bedtime with NovoLog coverage per scale. Hyperlipidemia-- Continue Lipitor Level of Care Med/Surg Advanced Directives Existing Advance Directive: No Existing Living Will: No Existing Power of Sales Floor Team Member: No Resuscitation Status FULL RESUSCITATION VTE Prophylaxis VTE Risk Assessment Done? Y/N: Yes Risk Level: High Given or contraindicated: Unfractionated heparin SQ, T.E.D. Stockings, SCD's Social Service Consult None Apply
[2017-03-31] MEDS ORDERED: INFLUENZA VACCINE HIGH DOSE 65+ 0.5 ML SYR IM. ONE (18:00)
[2017-03-31] MEDS ORDERED: INFLUENZA ADMINISTRATION CHARGE ONE (18:00)
[2017-03-31] MEDS ORDERED: IV FLUIDS COMPLETED PRN (18:00)
[2017-03-31] MEDS: ONDANSETRON INJ 2 MG/ML 2 ML VIAL IV PRN ×2 (18:12→23:47)
[2017-03-31] MEDS: SODIUM CHLORIDE 0.9% 1000ML 1,000 ML IV SCH (19:08)
[2017-03-31 19:42] VITALS: BP 132/81; PULSE 77; TEMP 36.6; O2SAT 97
[2017-03-31] MEDS: ATORVASTATIN 40 MG TAB PO SCH (20:52)
[2017-03-31] MEDS: TRAZODONE HCL 50 MG TAB PO SCH (20:53)
[2017-03-31] MEDS: HEPARIN SOD 5000 UNIT/0.5 ML CARP SQ SCH (21:10)
[2017-03-31] MEDS: INSULIN ASPART 100 UNITS/ML 3 ML PEN SC SCH (21:19)
[2017-03-31] MEDS: ACETAMINOPHEN 325 MG TAB PO PRN (23:47)
[2017-04-01 00:27] VITALS: BP 117/70; PULSE 83; TEMP 36.5; O2SAT 95
[2017-04-01] MEDS: SODIUM CHLORIDE 0.9% 1000ML 1,000 ML IV SCH ×3 (04:18→22:49)
[2017-04-01] MEDS: HEPARIN SOD 5000 UNIT/0.5 ML CARP SQ SCH ×3 (06:15→22:53)
[2017-04-01 07:04] VITALS: O2SAT 95
[2017-04-01] MEDS: ONDANSETRON INJ 2 MG/ML 2 ML VIAL IV PRN ×2 (07:04→13:44)
[2017-04-01] MEDS: ACETAMINOPHEN 325 MG TAB PO PRN ×3 (07:05→23:03)
[2017-04-01 07:20] LABS: HEMATOCRIT 33.5 % (37-47); MEAN CELL VOLUME 87.9 fL (80-100); MEAN CORPUSCULAR HEMOGLOBIN 28.3 pg (25-34); MEAN CORPUSCULAR HGB CONC 32.2 g/dl (32-36); MEAN PLATELET VOLUME 8.8 fL (7.4-10.4); PLATELET COUNT 314 K/uL (130-400); RED BLOOD COUNT 3.81 M/uL (4.2-5.4); WHITE BLOOD COUNT 7.13 K/uL (4.8-10.8)
[2017-04-01 07:56] LABS: BUN/CREATININE RATIO 15.6 (10-20); CREATININE 0.98 mg/dl (0.60-1.20); MAGNESIUM 1.7 mg/dl (1.8-2.4); POTASSIUM 4.2 mmol/L (3.5-5.1)
[2017-04-01 08:00] VITALS: BP 100/61; PULSE 67; TEMP 36.7; O2SAT 94
[2017-04-01] MEDS ORDERED: NON-FORMULARY MEDICATION (Probiotic Product (Probiotic) 1 CAP) PO SCH (08:00)
[2017-04-01] MEDS: VESICARE: ORDER AWAITING ACTION SCH ×4 (08:00→19:23)
[2017-04-01] MEDS: INSULIN ASPART 100 UNITS/ML 3 ML PEN SC SCH ×4 (08:28→22:00)
[2017-04-01] MEDS: ESCITALOPRAM OXALATE 20 MG TAB PO SCH (08:29)
[2017-04-01] MEDS: BuPROPion SR 100 MG TABCR PO SCH (08:29)
[2017-04-01] MEDS: ASPIRIN 81 MG ECTAB PO SCH (08:29)
[2017-04-01] MEDS: MAGNESIUM SULFATE 1GM / D5W 1 GM in PREMIXED IN D5W 100 ML IV SCH ×2 (09:41→10:38)
[2017-04-01] MEDS: RANITIDINE IV 50 MG in DEXTROSE 5% 100ML 100 ML IV SCH ×2 (11:43→19:14)
[2017-04-01] MEDS ORDERED: CEFTRIAXONE SOD INJ 1 GM in DEXTROSE 5% ADD-VANTAGE 50ML 50 ML IV SCH (16:00)
[2017-04-01 16:23] VITALS: BP 103/67; PULSE 77; TEMP 36.5; O2SAT 95
--- NOTE | 2017-04-01 18:16 | Progress Note ---
Subjective Date of Service: Apr 01, 2017. Subjective Pt evaluation today including: conversation w/ patient, physical exam, chart review, lab review, review of studies (CT abd/pelvis, cxr), review of inpatient medication list Pain: abdomen - mainly upper epigastric region PO Intake: tolerated breakfast w/o nausea/emesis Voiding: no voiding problems patient reports 8-10 UTIs/year previously saw Dr. Louis and took what sounds like abx prophylaxis for some time she has not seen Dr. Louis in "a while" c/o dizziness but not vertigo weakness is ongoing no further nausea/emesis denies diarrhea also has a chest tightness - present for a few days associated with dyspnea no back pain Problem List Medical Problems: (1) Kidney stone on left side Status: Acute (2) Vomiting Status: Acute Review of Systems Constitutional: No fever, No chills Respiratory: + dyspnea on exertion (at home last few days), No dyspnea at rest Cardiac: + see HPI, + chest pain, No orthopnea Abdomen: + pain, No nausea, No vomiting, No diarrhea, No constipation Female : + urinary frequency, No dysuria Objective Vital Signs Date Time Temp Pulse Resp B/P (MAP) Pulse Ox O2 Delivery O2 Flow Rate FiO2 04/01/17 16:23 36.5 77 18 103/67 (79) 95 Room Air 04/01/17 16:00 Room Air 04/01/17 08:00 36.7 67 20 100/61 (74) 94 04/01/17 07:04 95 Room Air 04/01/17 00:27 36.5 83 18 117/70 (86) 95 Room Air 04/01/17 00:00 Room Air 03/31/17 19:42 36.6 77 18 132/81 (98) 97 Room Air Physical Exam General Appearance: no apparent distress ENT: pharynx normal Neck: no JVD Respiratory/Chest: lungs clear, no respiratory distress, no accessory muscle use, + pertinent finding (mild reproducible chest wall pain over sternal region ) Cardiovascular: regular rate, rhythm, no gallop, no murmur Abdomen: normal bowel sounds, soft, no organomegaly, + tenderness (high epigastric region) Extremities: no pedal edema Neurologic/Psychiatric: alert, oriented x 3 Laboratory Results Last 24 Hours Test 03/31/17 18:59 03/31/17 21:17 04/01/17 06:19 04/01/17 07:14 Bedside Glucose 143 mg/dl 143 mg/dl White Blood Count 7.13 K/uL Red Blood Count 3.81 M/uL Hemoglobin 10.8 g/dL Hematocrit 33.5 % Mean Corpuscular Volume 87.9 fL Mean Corpuscular Hemoglobin 28.3 pg Mean Corpuscular Hemoglobin Concent 32.2 g/dl RDW Standard Deviation 44.6 fL RDW Coefficient of Variation 13.9 % Platelet Count 314 K/uL Mean Platelet Volume 8.8 fL Sodium Level 143 mmol/L Potassium Level 4.2 mmol/L Chloride Level 111 mmol/L Carbon Dioxide Level 25 mmol/L Anion Gap 6.0 mmol/L Blood Urea Nitrogen 15 mg/dl Creatinine 0.98 mg/dl Est Creatinine Clear Calc Drug Dose 51.5 ml/min Estimated GFR () 68.2 Estimated GFR (Non- 58.9 BUN/Creatinine Ratio 15.6 Random Glucose 99 mg/dl Calcium Level 8.0 mg/dl Magnesium Level 1.7 mg/dl Troponin I 0.049 ng/ml Test 04/01/17 07:27 04/01/17 11:30 04/01/17 13:34 04/01/17 16:38 Bedside Glucose 101 mg/dl 160 mg/dl 186 mg/dl Troponin I 0.043 ng/ml Assessment and Plan 71yo female - 1. recent klebsiella UTI - pansensitive by report - with possible pyelonephritis - repeat urine cx negative suggesting clearance. she was begun on IV rocephin last pm due to GI intolerance. continue such; may be able to resume PO meds tomorrow. 2. nausea/emesis - could have been 2nd to UTI/pyelonephritis vs med side effect (cipro) vs gastroparesis/IBS vs other. Either way it is resolved. 3. acute kidney injury - resolved; Cr improved w/ IVF. 4. chest tightness, dyspnea - I am unclear as to the exact etiology. EKG yesterday and EKG today w/o ischemic changes. Troponin scantly elevated. Some of her chest pain is reproducible. Esophageal pain could have caused chest symptoms but not dyspnea. Will follow symptoms for now. 5. abdominal pain - start zantac IV 50mg q8h. Could be gastritis/esophagitis. 6. h/o gastroparesis - linzess (?). 7. hypomagnesemia - replace, repeat level am. 8. T2DM - controlled; hold metformin, continue novolog correction. 9. FEN - continue IVF, diet as tolerated, repeat lytes including mag in AM. 10. recurrent UTIs - needs outpatient f/u with Dr. Louis. May even need to consider gynecology as well to r/o cystocele and other pelvic issues that could contribute. 11. DVT proph - heparin TID. In my clinical judgment this beneficiary meets acute admission criteria, established by CMS, that includes being hospitalized through two midnights. Thus, change to full admission status. Continued [facility] stay due to: inadequate po fluid intake, multiple IV medications needed Discharge planning: home
[2017-04-01] MEDS: ATORVASTATIN 40 MG TAB PO SCH (22:48)
[2017-04-01] MEDS: TRAZODONE HCL 50 MG TAB PO SCH (22:48)
[2017-04-02 00:37] VITALS: BP 110/70; PULSE 71; TEMP 36.7; O2SAT 95
[2017-04-02] MEDS: RANITIDINE IV 50 MG in DEXTROSE 5% 100ML 100 ML IV SCH ×2 (03:01→11:29)
[2017-04-02] MEDS: HEPARIN SOD 5000 UNIT/0.5 ML CARP SQ SCH ×3 (05:59→21:40)
[2017-04-02 07:28] LABS: HEMATOCRIT 32.1 % (37-47); MEAN CELL VOLUME 87.5 fL (80-100); MEAN CORPUSCULAR HGB CONC 34.3 g/dl (32-36); MEAN PLATELET VOLUME 8.8 fL (7.4-10.4); PLATELET COUNT 283 K/uL (130-400); RED BLOOD COUNT 3.67 M/uL (4.2-5.4); WHITE BLOOD COUNT 7.19 K/uL (4.8-10.8)
[2017-04-02 07:45] VITALS: O2SAT 96
[2017-04-02] MEDS: BuPROPion SR 100 MG TABCR PO SCH (07:46)
[2017-04-02] MEDS: VESICARE: ORDER AWAITING ACTION SCH ×2 (07:46→16:00)
[2017-04-02] MEDS: ASPIRIN 81 MG ECTAB PO SCH (07:46)
[2017-04-02] MEDS: ESCITALOPRAM OXALATE 20 MG TAB PO SCH (07:46)
[2017-04-02] MEDS: INSULIN ASPART 100 UNITS/ML 3 ML PEN SC SCH ×4 (07:46→21:36)
[2017-04-02 07:58] LABS: BUN/CREATININE RATIO 13.8 (10-20); CALCIUM 8.2 mg/dl (8.5-10.1); CREATININE 1.1 mg/dl (0.60-1.20); MAGNESIUM 1.8 mg/dl (1.8-2.4); POTASSIUM 4.5 mmol/L (3.5-5.1)
[2017-04-02 08:20] VITALS: BP 108/61; PULSE 60; TEMP 36.6; O2SAT 96
[2017-04-02] MEDS: SODIUM CHLORIDE 0.9% 1000ML 1,000 ML IV SCH (08:40)
[2017-04-02] MEDS ORDERED: LORAZEPAM 0.5 MG TAB ONE (08:44)
[2017-04-02] MEDS ORDERED: DICYCLOMINE HCL 10 MG CAP PO PRN (09:00)
[2017-04-02] MEDS ORDERED: CIPROFLOXACIN 500 MG TAB PO ONE (14:00)
[2017-04-02 14:32] VITALS: BP 128/72; PULSE 86; O2SAT 98
[2017-04-02 15:11] VITALS: BP 108/55; PULSE 70; TEMP 36.5; O2SAT 95
[2017-04-02] MEDS: RANITIDINE HCL 150 MG TAB PO SCH (20:11)
--- NOTE | 2017-04-02 21:25 | Progress Note ---
Subjective Date of Service: Apr 02, 2017. Subjective Pt evaluation today including: conversation w/ patient, conversation w/ family ( by phone), physical exam, chart review, lab review, conversation w/ e business consultant (spoke with PCP by phone), review of inpatient medication list Pain: upper abd discomfort but improved; chest tightness - constant PO Intake: ate 100% of breakfast today Voiding: no voiding problems patient still reporting mild dyspnea on exertion occasionally sob at rest as well still with "chest tightness" had mild nausea in the middle of the night had nausea after breakfast this am along with cramps and "rumbling" in her stomach no stool or diarrhea since admission no emesis dizziness resolved occasional headache Problem List Medical Problems: (1) Kidney stone on left side Status: Acute (2) Vomiting Status: Acute Review of Systems Constitutional: No fever, No chills Respiratory: No cough, No wheezing Cardiac: + see HPI, + chest pain, No orthopnea, No PND, No edema Abdomen: + see HPI Objective Vital Signs Date Time Temp Pulse Resp B/P (MAP) Pulse Ox O2 Delivery O2 Flow Rate FiO2 04/02/17 17:16 Room Air 04/02/17 15:11 36.5 70 18 108/55 (72) 95 Room Air 04/02/17 14:32 86 20 128/72 (90) 98 Room Air 04/02/17 08:20 36.6 60 20 108/61 (77) 96 04/02/17 07:45 96 Room Air 04/02/17 00:37 36.7 71 20 110/70 (83) 95 Room Air 04/02/17 00:00 Room Air Physical Exam General Appearance: no apparent distress, + pertinent finding (despite her complaints she looks very comfortable and in no distress ) ENT: pharynx normal Neck: no JVD Respiratory/Chest: lungs clear, no respiratory distress, no accessory muscle use, + pertinent finding (mildly tender to palpation over sternum (similar to yesterday)) Cardiovascular: regular rate, rhythm, no gallop, no murmur Abdomen: normal bowel sounds, non tender, soft, no organomegaly, + pertinent finding (no flank tenderness to palpation ) Extremities: no pedal edema Neurologic/Psychiatric: alert, oriented x 3, + pertinent finding (anxious ) Skin: no rash, + pertinent finding (tatoo on left leg ) Laboratory Results Last 24 Hours Test 04/02/17 06:58 04/02/17 07:18 04/02/17 11:19 04/02/17 16:39 White Blood Count 7.19 K/uL Red Blood Count 3.67 M/uL Hemoglobin 11.0 g/dL Hematocrit 32.1 % Mean Corpuscular Volume 87.5 fL Mean Corpuscular Hemoglobin 30.0 pg Mean Corpuscular Hemoglobin Concent 34.3 g/dl RDW Standard Deviation 44.3 fL RDW Coefficient of Variation 13.8 % Platelet Count 283 K/uL Mean Platelet Volume 8.8 fL Sodium Level 143 mmol/L Potassium Level 4.5 mmol/L Chloride Level 115 mmol/L Carbon Dioxide Level 24 mmol/L Anion Gap 4.0 mmol/L Blood Urea Nitrogen 15 mg/dl Creatinine 1.10 mg/dl Est Creatinine Clear Calc Drug Dose 45.9 ml/min Estimated GFR () 59.3 Estimated GFR (Non- 51.2 BUN/Creatinine Ratio 13.8 Random Glucose 125 mg/dl Calcium Level 8.2 mg/dl Magnesium Level 1.8 mg/dl Bedside Glucose 124 mg/dl 120 mg/dl 138 mg/dl Assessment and Plan 71yo female - 1. recent klebsiella UTI - with possible pyelonephritis - repeat urine cx negative suggesting clearance. she was begun on IV rocephin at admission; took cipro at home prior to presenting here since she is tolerating PO will place her back on cipro and d/c the rocephin would Rx for 14 days in total 2. nausea/emesis - could have been 2nd to UTI/pyelonephritis vs med side effect (cipro) vs gastroparesis/IBS vs other. Either way it is resolved. 3. acute kidney injury - resolved 4. chest tightness, dyspnea - I am unclear as to the exact etiology. EKG x 2 this am w/o ischemic changes. Troponin was scantly elevated. Some of her chest pain is reproducible. Esophageal pain could have caused chest symptoms but not dyspnea. Despite her overall feeling better she continues to report dyspnea. Ordered echo - completed but waiting on report. Given her longstanding T2DM -- consider stress test as the Dyspnea could be anginal equivalent. NPO after MN tonight if attending MD tomorrow orders a stress test If cardiac w/u is negative - anxiety?? 5. abdominal pain - resolved on exam today. Could have had gastritis. Continue zantac. 6. h/o gastroparesis - linzess. 7. hypomagnesemia - resolved. 8. T2DM - controlled; hold metformin, continue novolog correction. 9. FEN - stop fluids, diet as tolerated, repeat lytes normal. 10. recurrent UTIs - needs outpatient f/u with Dr. Louis. May even need to consider gynecology as well to r/o cystocele and other pelvic issues that could contribute. 11. DVT proph - heparin TID. 12. ??IBS?? - bentyl 10mg prn updated by phone this evening confirmed with patient's PCP today that patient experiences severe anxiety on a chronic basis she also confirmed that the urine cx did indeed show klebsiella sensitive to cipro, rocephin, cefepime, macrobid, gent, bactrim resistant to ampicillin Continued [facility] stay due to: other (dyspnea, mixed other complaints ) Discharge planning: home
[2017-04-02] MEDS: TRAZODONE HCL 50 MG TAB PO SCH (21:36)
[2017-04-02] MEDS: ATORVASTATIN 40 MG TAB PO SCH (21:36)
[2017-04-02] MEDS: CIPROFLOXACIN 500 MG TAB PO SCH (21:41)
[2017-04-02 23:55] VITALS: BP 93/61; PULSE 66; TEMP 37; O2SAT 94
[2017-04-03] MEDS: HEPARIN SOD 5000 UNIT/0.5 ML CARP SQ SCH ×2 (05:30→14:00)
[2017-04-03] MEDS: INSULIN ASPART 100 UNITS/ML 3 ML PEN SC SCH ×2 (06:30→11:00)
[2017-04-03] MEDS: VESICARE: ORDER AWAITING ACTION SCH ×2 (07:05)
[2017-04-03] MEDS: RANITIDINE HCL 150 MG TAB PO SCH (07:08)
[2017-04-03] MEDS: BuPROPion SR 100 MG TABCR PO SCH (07:08)
[2017-04-03] MEDS: CIPROFLOXACIN 500 MG TAB PO SCH (07:08)
[2017-04-03] MEDS: ESCITALOPRAM OXALATE 20 MG TAB PO SCH (07:09)
[2017-04-03] MEDS: ASPIRIN 81 MG ECTAB PO SCH (07:09)
[2017-04-03 07:40] VITALS: BP 134/84; PULSE 68; TEMP 36.7; O2SAT 97
--- NOTE | 2017-04-03 08:53 | Family Medicine Progress Note ---
Progress Note Date of Service Apr 03, 2017. Objective Vital Signs Date Time Temp Pulse Resp B/P (MAP) Pulse Ox O2 Delivery O2 Flow Rate FiO2 04/03/17 08:00 Room Air 04/03/17 07:40 36.7 68 18 134/84 (101) 97 Room Air 04/03/17 00:00 Room Air 04/02/17 23:55 37.0 66 20 93/61 (72) 94 Room Air 04/02/17 17:16 Room Air 04/02/17 15:11 36.5 70 18 108/55 (72) 95 Room Air 04/02/17 14:32 86 20 128/72 (90) 98 Room Air Resident Tracking Resident Involvement: Resident Care Provided Care Provided: Adult Hospital Medicine
[2017-04-03] MEDS ORDERED: PERFLUTREN LIPID MICROSPHERE (DEFINITY) IV ONE (11:16)
--- NOTE | 2017-04-03 11:46 | EXERCISE STRESS ECHO ---
*NOTICE TO RECEIVING [employer]ENCY This information is strictly Confidential and protected under [place] law. [place] law prohibits you from making any further disclosure of this information unless further disclosure is expressly permitted by the written consent of the person to whom it pertains or is authorized by law. A general authorization for the release of medical or other information is not sufficient for this purpose. Hospital accepts no responsibility if the information is made available to any other person, INCLUDING THE PATIENT. Interpretation Summary * Name: SYBIL CACERES Study Date: 04/03/2017 09:49 AM BP: 146/88 mmHg * Patient Location: [id number]\S\[id number] HR: 75 * : 1945 (M/d/yyy) Gender: Female Height: 63 in * Age: 71 yrs Ethnicity: [place] Weight: 158 lb * Ordering Physician: Amalia Galicia * Referring Physician: Self, Referred * Performed By: Bailey Hannon RDCS * * Reason For Study: CHEST PAIN * BSA: 1.7 m2 * -- Conclusions -- * 1. Normal stress echocardiogram at 4.7 METS and a peak heart rate of greater than 100% predicted maximal. * 2. No exercise-induced chest pain. * 3. No EKG changes. * 4. Baseline echocardiogram notes normal left ventricular systolic function without wall motion abnormalities. Procedure Details * ECHOEX, CPT #35744 * A contrast injection of Definity was performed to improve assessment of LV function. * Contrast was injected into an intravenous site in the right arm. * One vial of Definity ultrasound contrast was diluted in normal saline to a total volume of 10 ml. A total of '4' ml of solution was administered during imaging. * Lot # [id number] of Definity utilized for procedure. * Expiration date APR 05. * The attending nurse who injected the contrast agent was DERRICK OLIVIA RN. Left Ventricle * The left ventricle is normal in size. * Left ventricular systolic function is normal. * Resting wall motion: Normal. Stress wall motion: Appropriate increase in Left ventricular systolic function and decrease in cavity size. No stress induced segmental wall motion abnormalities. Stress Parameters * The baseline ECG displays normal sinus rhythm. * Stress ECG: No ST changes. No arrhythmias. * Rest heart rate was '75' BPM. * Rest blood pressure was '146/88' * Maximum heart rate achieved was 169 bpm. * Maximum heart rate was 111 % of maximum age-predicted heart rate. * Maximum blood pressure was '211/88' * Total exercise time was '3:07' * Maximum exercise MET level achieved was '4.70' METS * Maximum treadmill speed was '2.50' miles per hour. * Maximum treadmill elevation was '12.00'% grade. * Exercise was terminated due to 'FATIGUE AND REACHING TARGET HR'
--- NOTE | 2017-04-03 12:25 | ECHOCARDIOGRAM REPORT ---
*NOTICE TO RECEIVING [employer]ENCY This information is strictly Confidential and protected under [place] law. [place] law prohibits you from making any further disclosure of this information unless further disclosure is expressly permitted by the written consent of the person to whom it pertains or is authorized by law. A general authorization for the release of medical or other information is not sufficient for this purpose. Hospital accepts no responsibility if the information is made available to any other person, INCLUDING THE PATIENT. Interpretation Summary * Name: SYBIL CACERES Study Date: 04/02/2017 01:15 PM BP: 108/61 mmHg * Patient Location: [id number]\S\2 HR: 60 * : 1945 (M/d/yyyy) Gender: Female Height: 63 in * Age: 71 yrs Ethnicity: CA Weight: 158 lb * Ordering Physician: Kelvin Vieira * Referring Physician: Self, Referred * Performed By: Irma Goldman RDCS * * Reason For Study: Dyspnea, shortness of breath, minimal elevated troponin * BSA: 1.7 m2 * -- Conclusions -- * There is normal left ventricular wall thickness. * No regional wall motion abnormalities noted. * Ejection Fraction = 55-60%. * There is mild mitral regurgitation. * There is mild tricuspid regurgitation. Procedure Details * A complete two-dimensional transthoracic echocardiogram was performed (2D, M-mode, Doppler and color flow Doppler). Left Ventricle * The left ventricle is normal in size. * There is normal left ventricular wall thickness. * Ejection Fraction = 55-60%. * Left ventricular systolic function is normal. * No regional wall motion abnormalities noted. Right Ventricle * The right ventricle is grossly normal size. * The right ventricular systolic function is normal. Atria * The left atrium is mildly dilated. * Right atrial size is normal. * No ASD detected; PFO is not assessed. Mitral Valve * The mitral valve is grossly normal. * Focal calcification noted on the anterior mitral leaflet. * No significant mitral valve stenosis. * There is mild mitral regurgitation. Tricuspid Valve * The tricuspid valve is not well visualized, but is grossly normal. * No significant tricuspid stenosis. * There is mild tricuspid regurgitation. Aortic Valve * The aortic valve is normal in structure and function. * No hemodynamically significant valvular aortic stenosis. * No aortic regurgitation is present. Pulmonic Valve * The pulmonary valve is not well seen, but the Doppler examination is normal without significant regurgitation or stenosis. Great Vessels * The aortic root is normal size. * The pulmonary is not well visualized. Pericardium/Pleural * There is no pericardial effusion. Great Vessels * Normal inferior vena cava size and collapsability with sniff indicates a normal right atrial pressure of 3 mmHg MMode 2D Measurements and Calculations IVSd 0.99 cm LVIDd 4.5 cm LVIDs 3.1 cm LVPWd 0.84 cm IVS/LVPW 1.2 FS 31.2 % EDV(Teich) 92.1 ml ESV(Teich) 37.7 ml EF(Teich) 59.0 % EDV(cubed) 90.7 ml ESV(cubed) 29.6 ml EF(cubed) 67.4 % LV mass(C)d 135.1 grams LV mass(C)dI 77.2 grams/m\S\2 SV(Teich) 54.4 ml SI(Teich) 31.1 ml/m\S\2 SV(cubed) 61.1 ml SI(cubed) 34.9 ml/m\S\2 Ao root diam 3.0 cm Ao root area 6.9 cm\S\2 ACS 2.1 cm LA dimension 3.5 cm asc Aorta Diam 3.2 cm LA/Ao 1.2 LVOT diam 2.0 cm LVOT area 3.0 cm\S\2 LVAd ap4 21.0 cm\S\2 LVLd ap4 6.7 cm EDV(MOD-sp4) 56.2 ml EDV(sp4-el) 56.3 ml LVAs ap4 13.2 cm\S\2 LVLs ap4 6.0 cm ESV(MOD-sp4) 26.0 ml ESV(sp4-el) 24.7 ml EF(MOD-sp4) 53.7 % EF(sp4-el) 56.2 % LVAd ap2 20.1 cm\S\2 LVLd ap2 6.2 cm EDV(MOD-sp2) 51.3 ml EDV(sp2-el) 55.0 ml LVAs ap2 12.0 cm\S\2 LVLs ap2 5.6 cm ESV(MOD-sp2) 21.9 ml ESV(sp2-el) 22.1 ml EF(MOD-sp2) 57.4 % EF(sp2-el) 59.8 % LVLd %diff -7.29 % EDV(MOD-bp) 55.0 ml LVLs %diff -8.39 % ESV(MOD-bp) 24.7 ml EF(MOD-bp) 55.1 % SV(MOD-sp4) 30.1 ml SI(MOD-sp4) 17.2 ml/m\S\2 SV(MOD-sp2) 29.4 ml SI(MOD-sp2) 16.8 ml/m\S\2 SV(MOD-bp) 30.3 ml SI(MOD-bp) 17.3 ml/m\S\2 SV(sp4-el) 31.6 ml SI(sp4-el) 18.1 ml/m\S\2 SV(sp2-el) 32.9 ml SI(sp2-el) 18.8 ml/m\S\2 Doppler Measurements and Calculations MV E max adarsh 102.8 cm/sec MV A max adarsh 78.6 cm/sec MV E/A 1.3 MV dec time 0.20 sec Ao V2 max 125.1 cm/sec Ao max PG 6.3 mmHg Ao max PG (full) 3.6 mmHg RAFAEL(V,A) 2.0 cm\S\2 RAFAEL(V,D) 2.0 cm\S\2 LV V1 max PG 2.7 mmHg LV V1 max 81.5 cm/sec MR max adarsh 522.0 cm/sec MR max PG 109.0 mmHg MR mean adarsh 380.5 cm/sec MR mean PG 67.1 mmHg MR VTI 155.4 cm PA V2 max 67.9 cm/sec PA max PG 1.8 mmHg PA acc slope 428.0 cm/sec\S\2 PA acc time 0.10 sec PI max adarsh 150.3 cm/sec PI max PG 9.0 mmHg PI dec slope 100.9 cm/sec\S\2 PI P1/2t 436.4 msec TR max adarsh 247.2 cm/sec PA pr(Accel) 34.6 mmHg
[2017-04-03 13:32] VITALS: BP 134/84; PULSE 68; TEMP 36.7; O2SAT 97
[2017-04-03] MEDS ORDERED: BNT10 PO (14:05)
[2017-04-03] MEDS ORDERED: CPR500 PO (14:05)
[2017-04-03] MEDS ORDERED: ZNT150 PO (14:05)
--- NOTE | 2017-04-03 14:16 | Discharge Instructions ---
Discharge Instructions Date of Service Apr 03, 2017. Admission Reason for Admission: UTI Discharge Discharge Diagnosis / Problem: UTI with sepsis and pyelonephritis Discharge Goals Goal(s): Decrease discomfort, Diagnostic testing, Therapeutic intervention Activity Recommendations Activity Limitations: resume your previous activity . Instructions / Follow-Up Instructions / Follow-Up You were admitted to hospital with fevers and chills after recently starting treatment for a urinary tract infection. You were started on IV antibiotics and your symptoms began to improve and a repeat urine culture showed decreased growth of bacteria in the urine. You started having some nausea and chest tightness, but these improved with medication and a stress echo was reassuring that you are well from a cardiac standpoint. On discharge, continue the antibiotic ciprofloxacin twice daily for another 11 days. Please complete the medication even if you are feeling completely fine. Additionally, dicyclomine (Bentyl - for abdominal discomfort) and ranitidine ( Zantac - for acid reflux symptoms) have been prescribed to use as needed. You may resume all other medication as previously prescribed. Follow up with your PCP is recommended within the next 1-2 weeks. Thank you for allowing us to participate in your care. Current Hospital Diet Patient's current hospital diet: Regular Diet, Diabetes Type 2 Diet Discharge Diet Recommended Diet: Diabetes Type 2 Diet Pending Studies Studies pending at discharge: no Medical Emergencies . Who to Call and When: Medical Emergencies: If at any time you feel your situation is an emergency, please call 911 immediately. . Non-Emergent Contact Non-Emergency issues call your: Primary Care Provider . . "Provider Documentation" section prepared by Emani Sahni. . VTE Core Measure Inpt VTE Proph given/why not?: Unfractionated heparin Deepthi FLOOD, SCD 's
--- NOTE | 2017-04-03 14:18 | Discharge Summary ---
Discharge Summary Date of Service Apr 03, 2017. (Alka. Sahni MD) Discharge Summary Admission Date: Apr 01, 2017 at 17:22 Discharge Date: Apr 03, 2017 Discharge Disposition: Home Principal Diagnosis: UTI with sepsis Immunizations: Have You Had Influenza Vaccine: Yes Influenza Vaccine Date: Mar 31, 2012 History of Tetanus Vaccine?: Unknown History of Pneumococcal: Yes Pneumococcal Date: Mar 31, 2012 History of Hepatitis B Vaccine: No (Alka. Sahni MD) Medication Reconciliation New Medications: Ciprofloxacin (Ciprofloxacin HCl) 500 Mg Tab 500 MG PO BID for 11 Days, #22 TAB Dicyclomine HCl (Dicyclomine HCl) 10 Mg Cap 10 MG PO Q8H PRN for stomach cramps/upset, #30 CAP Ranitidine HCl (Ranitidine HCl) 150 Mg Tab 150 MG PO BID, #30 TAB Continued Medications: Aspirin (Aspirin Chewable) 81 Mg Chew 81 MG PO QAM Restart in 3 days if urine clear Atorvastatin (Atorvastatin Calcium) 40 Mg Tab 40 MG PO HS Bupropion (Wellbutrin Sr) 100 Mg Ertab 100 MG PO QAM, TAB Cyanocobalamin (Vitamin B-12 Inj) Inj 1 ML IM MONTHLY for 30 Days, #1 VIAL LAST DOS 12/02 Escitalopram Oxalate (Lexapro) 20 Mg Tab 20 MG PO QAM, TAB Linaclotide (Linzess) 145 Mcg Cap 145 MCG PO DAILY AM Metformin Hcl (Glucophage) 1,000 Mg Tab 1000 MG PO BID Nystatin (Nystatin Cream) 90 Appln/30 Gm Cr 0 EXT UD PRN for PRN, #15 GM APPLY TO AFFECTED AREA BID Probiotic Product (Probiotic) 1 Cap Cap 1 CAP PO QAM Solifenacin (Vesicare) 5 Mg Tab 5 MG PO QAM PRN for PRN, TAB Trazodone Hcl (Trazodone) 50 Mg Tab 50 MG PO HS Discontinued Medications: Ciprofloxacin (Cipro) 250 Mg Tab 250 MG PO BID Discharge Exam Patient well this morning, denies acute overnight events. Denies current urinary symptoms but states that she never does have any in the first place. She states the absence of chest tightness currently. She is breathing without issue. Her abdominal pain largely resolved and she denies nausea or vomiting. She is voiding without issue stooling appropriately. She is tolerating diet. She is keen for home. ROS unremarkable except as noted above. Physical Exam: General Appearance: WD/WN, no apparent distress Eyes: normal inspection ENT: hearing grossly normal Neck: supple Respiratory/Chest: lungs clear, normal breath sounds, no respiratory distress, no accessory muscle use, + pertinent finding (Some tenderness on paloation of lower sternum) Cardiovascular: regular rate, rhythm, no murmur, normal peripheral pulses Abdomen / GI: normal bowel sounds, non tender, soft Extremities: no calf tenderness, no pedal edema Neurologic/Psychiatric: alert, normal mood/affect, oriented x 3 Skin: normal color, warm/dry, no rash (Alka. Sahni MD) no further shortness of breath. no chest pain, palpitation Review of Systems: Constitutional: No fever Respiratory: No shortness of breath Cardiovascular: No chest pain Physical Exam: General Appearance: no apparent distress Respiratory/Chest: lungs clear, no respiratory distress Cardiovascular: regular rate, rhythm Abdomen / GI: normal bowel sounds, non tender, soft Neurologic/Psychiatric: alert, oriented x 3 Skin: warm/dry (Amalia Galicia M.D.) Hospital Course 71yo female with PMHx of HLD, T2DM, anxiety/depression, recurrent UTI, h/o kidney stones, and GERD, who presented to the ED because of flu-like symptoms x1 week with fever/chills, abdominal cramping, N/V/D, and on Cipro since 03/27 by her PCP for a Klebsiella pansensitive UTI. Repeat urine cx negative suggesting clearance. Was started on IV rocephin on admission. This helped to resolve nausea and emesis, although it is unsure whether or not this attributed to the UTI/pyelo vs PO cipro vs gastroparesis/IBS vs other. On discharge: Recent klebsiella UTI with possible pyelonephritis - continue PO ciprofloxacin for a total 14 day course of antibiotics (11 more days) Other issues: Acute kidney injury - resolved. Creatinine 1.1 on discharge. Chest tightness, dyspnea - etiology unclear. EKG x 2 w/o ischemic changes. Troponin was scantly elevated. Some of her chest pain is reproducible. Stress echo negative. Possibly related to anxiety vs GERD. Symptoms improved with Zantac Abdominal pain - resolved. Possibly secondary to gastritis or IBS. Continue Bentyl and Zantac. H/o gastroparesis - Continue Linzess. Hypomagnesemia - resolved. T2DM - controlled; metformin held in hospital with insulin sliding scale novolog correction. Metformin resumed on discharge. Recurrent UTIs - Needs outpatient f/u with Dr. Louis urologist. May even need to consider gynecology as well to r/o cystocele and other pelvic issues that could contribute. Follow up with PCP in next 1-2 weeks. Total Time Spent: Less than 30 minutes This includes examination of the patient, discharge planning, medication reconciliation, and communication with other providers. (Alka. Sahni MD) Resident Physician Supervision Note: I independently interviewed and examined the patient and verified the osorio history and physical, reviewed labs and image studies, discussed the case with the resident Dr. Sahni and agree with the findings and care plan. Total Time Spent: Greater than 30 minutes (35) (Amalia Galicia M.D.) Discharge Instructions Please refer to the electronic Patient Visit Report (Discharge Instructions) for additional information. (Alka. Sahni MD) Additional Copies To Patricia Davison M.D.
== END 2017-04-03 15:15 | disposition home or self-care (01) | DRG 690 ==
LOC: C.EDB 11:14 → C.MS4W 17:21 → ENRESERV 17:22 → EDBEDREQ 17:25 → OBSVTOIN 04-01 17:22
PROVIDERS: ADMIT Hospitalist; ATTEND Family Medicine
DX: N39.0 Urinary tract infection, site not specified (principal); N17.9 Acute kidney failure, unspecified; N10 Acute pyelonephritis; F32.9 Major depressive disorder, single episode, unspecified; E11.9 Type 2 diabetes mellitus without complications; F41.1 Generalized anxiety disorder; K21.9 Gastro-esophageal reflux disease without esophagitis; I10 Essential (primary) hypertension; Z79.82 Long term (current) use of aspirin; Z95.2 Presence of prosthetic heart valve; Z83.3 Family history of diabetes mellitus; Z82.49 Family history of ischemic heart disease and other diseases of the circulatory system

== ENCOUNTER 2017-07-03 10:05 | Emergency (ER) | payer OTHER ==
[~2017-07-03] VITALS: Ht 167.6 cm; Wt 71.1 kg
[~2017-07-03 10:05] MED LIST changes: +BNT10 PO; +CPR500 PO; -CRAN1TAB PO; +ZNT150 PO
[2017-07-03 10:17] VITALS: TEMP 36.3; Ht 167.6 cm; Wt 71.1 kg
--- NOTE | 2017-07-03 10:41 | EMERGENCY ROOM VISIT NOTE ---
History Report prepared by Derrick: Haile Mitchell Under the Supervision of: Dr. Shanice Hernandez M.D. First contact with patient: 10:25 Chief Complaint: ABDOMINAL PAIN Stated Complaint: SICK AND PAIN IN STOMACH History of Present Illness The patient is a 71 year old female diabetic with a history of gastroparesis who presents to the Emergency Room with complaints of a waxing and waning illness that started a week ago. She states that she has been having bad upper abdominal pain, which wraps around to her back bilaterally. She adds that she has been nauseated, and has had episodes of diarrhea. The patient says that she has been having diarrhea only once every 2 days, but notes that she has a hard time going to the bathroom in general. She denies any vomiting or hematochezia, though she notes that she feels like she needs to vomit. The patient says that she has been taking her gastroparesis medications with little relief of symptoms. She notes that she frequently gets septic, and has a history of kidney insufficiency. She states that she has never had heart surgery. She says that she is not currently on any blood thinners. The patient states that she is a non-smoker. She also notes a history of UTI's, and her previous ones have never presented like this before. Source of History: patient Onset: A week ago Position: other (global - illness) Quality: other (has gastroparesis) Timing: waxes/wanes Associated Symptoms: + nausea, + abdominal pain, + diarrhea, No vomiting, No hematochezia Review of Systems See HPI for pertinent positives & negatives. A total of 10 systems reviewed and were otherwise negative. 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 (13) Hypertension Nos (14) Hypomagnesemia (15) Kidney stone (16) Nephrolithiasis (17) Neuropathy (18) Personal History Of Colonic Polyps (19) PICC line infection (20) Pyelonephritis (21) Renal & Ureteral Dis Nos (22) Right knee pain (23) Sepsis (24) Urinary tract infection (25) Urinary tract infection (26) Urinary tract infection (27) Urinary tract infection (28) UTI (urinary tract infection) Surgical Problems: (1) Post-operative state Family History Diabetes mellitus FH: gallbladder disease FH: heart disease Hypertension Social History Smoking Status: Never Smoker Alcohol Use: occasionally Drug Use: none Marital Status: Housing Status: lives with family Occupation Status: retired Current/Historical Medications Scheduled Aspirin (Aspirin Chewable), 81 MG PO QAM Atorvastatin (Lipitor), 40 MG PO HS Buspirone Hcl (Buspirone Hcl), 7.5 MG PO BID Cyanocobalamin (Cyanocobalamin), 1,000 MCG IM MONTHLY Escitalopram Oxalate (Lexapro), 20 MG PO QAM Linaclotide (Linzess), 145 MCG PO Q2D Metformin Hcl (Glucophage), 1,000 MG PO BID Omeprazole (Prilosec), 20 MG PO DAILY Ranitidine HCl (Ranitidine HCl), 150 MG PO BID Solifenacin (Vesicare), 5 MG PO QAM Trazodone Hcl (Trazodone), 50 MG PO HS Trospium Chloride (Trospium Chloride), 20 MG PO BID [Steroid Injection], 1 DOSE INJ UD Scheduled PRN Meclizine Hcl (Meclizine Hcl), 12.5-25 MG PO TID PRN for Dizziness or Vertigo Allergies Coded Allergies: Erythromycin (Verified Adverse Reaction, Unknown, NAUSEATED, 07/03/17) Hydrocodone (Verified Adverse Reaction, Unknown, DIZZINESS, FAINTING, 07/03) Meperidine (Verified Adverse Reaction, Unknown, DROP IN BP, FAINTING, 07/03) Sulfamethoxazole w/Trimethoprim (Verified Adverse Reaction, Unknown, GI SYMPTOMS, 07/03/17) Physical Exam Vital Signs Date Time Temp Pulse Resp B/P (MAP) Pulse Ox O2 Delivery O2 Flow Rate FiO2 07/03/17 14:27 77 18 136/82 98 Room Air 07/03/17 14:22 80 07/03/17 12:36 78 18 127/72 96 Room Air 07/03/17 10:35 89 07/03/17 10:17 36.3 94 20 135/75 97 Room Air Physical Exam Vital signs reviewed. General: Well-appearing 71 year old female, in no significant distress. HEENT: No scleral icterus, PERRLA, neck supple. Atraumatic. Cardiovascular: Regular rate and rhythm, no extra sounds. Pulmonary: Clear to auscultation bilaterally, normal work of breathing. Abdomen: Soft, epigastric tenderness, nondistended, positive bowel sounds. Musculoskeletal: Left greater than right CVA tenderness, no peripheral edema. Neurologic: Patient awake alert and oriented x 3 Skin: Warm, dry, no rash Medical Decision & Procedures ER Provider Diagnostic Interpretation: CT results as stated below per my review and radiologist interpretation: ABDOMEN AND PELVIS CT WITH IV CONTRAST CT DOSE: 379.19 mGy.cm HISTORY: Acute left upper quadrant abdominal pain LUQ abd pain TECHNIQUE: Multiaxial CT images of the abdomen and pelvis were performed following the use of intravenous contrast. A dose lowering technique was utilized adhering to the principles of ALARA. COMPARISON STUDY: CT 03/31/2017. FINDINGS: Minimal dependent bibasilar atelectasis. Small left Bochdalek hernia. Linear subsegmental atelectasis or scarring of the inferior segment lingula. There is no pneumatosis or pneumoperitoneum. Calcifications of the mitral annulus are noted. Focal area of low-attenuation is again seen involving segment IV of the left hepatic lobe, 1.3 cm suggesting a hepatic cyst, unchanged. Liver is otherwise unremarkable. There is no intrahepatic biliary ductal dilation. The spleen, pancreas, gallbladder and adrenal glands are within normal limits. 4 mm nonobstructing calculus of the interpolar right kidney is noted. 8 mm nonobstructing calculus of the inferior pole left kidney. There is mild proximal thinning and cortical scarring noted on the right. Areas of severe parenchymal thinning and cortical scarring are noted on the left with areas of low-attenuation suggesting renal cyst. Mild nonspecific bilateral perinephric stranding. Again, there is urothelial thickening on the left, nicely seen at the level the renal pelvis. No ureteral calculi or obstructive uropathy identified. There is a punctate calculus noted within the central dependent urinary bladder lumen on image 389 series 3. Calcified 9 mm right uterine fibroid. Calcifications of the left uterus likely reflect additional calcified fibroids. No adnexal mass. Moderate atherosclerosis of the aorta. No pathologic adenopathy identified. There is a large duodenal diverticulum noted. No bowel obstruction. Mild prominence of small bowel noted within the upper abdomen measuring up to 2.9 cm, nonspecific and appears unchanged. Mild to moderate sigmoid diverticulosis without CT evidence of acute diverticulitis. Normal appendix. Soft tissues are unremarkable. Bones appear intact. IMPRESSION: 1. Mild to moderate sigmoid colon diverticulosis without CT evidence of acute diverticulitis. 2. Bilateral nephrolithiasis without ureteral calculi or obstructive uropathy. 3. Extensive cortical scarring of the left kidney redemonstrated with urothelial thickening seen greatest at the level the renal pelvis. Correlate with urinalysis to exclude ureteritis. 4. Large duodenal diverticulum again seen without evidence of bowel obstruction. 5. Normal appendix. 6. Additional findings as above. Electronically signed by: Nitesh Pathak M.D. 07/03/2017 1:50 PM Dictated Date/Time: 07/03/2017 1:40 PM Laboratory Results 07/03/17 10:55 Red Blood Count 4.26, Mean Corpuscular Volume 86.2, Mean Corpuscular Hemoglobin 28.6, Mean Corpuscular Hemoglobin Concent 33.2, Mean Platelet Volume 9.1, Neutrophils (%) (Auto) 65.2, Lymphocytes (%) (Auto) 24.2, Monocytes (%) (Auto) 8.6, Eosinophils (%) (Auto) 1.3, Basophils (%) (Auto) 0.4, Neutrophils # (Auto) 7.22, Lymphocytes # (Auto) 2.67, Monocytes # (Auto) 0.95, Eosinophils # (Auto) 0.14, Basophils # (Auto) 0.04 07/03/17 10:55 Test 07/03/17 10:20 07/03/17 10:55 07/03/17 11:05 Urine Color YELLOW Urine Appearance CLEAR (CLEAR) Urine pH 5.0 (4.5-7.5) Urine Specific [place] 1.023 (1.000-1.030) Urine Protein NEG (NEG) Urine Glucose (UA) NEG (NEG) Urine Ketones NEG (NEG) Urine Occult Blood NEG (NEG) Urine Nitrite NEG (NEG) Urine Bilirubin NEG (NEG) Urine Urobilinogen NEG (NEG) Urine Leukocyte Esterase SMALL (NEG) Urine WBC (Auto) 1-5 /hpf (0-5) Urine RBC (Auto) 0-4 /hpf (0-4) Urine Hyaline Casts (Auto) 5-10 /lpf (0-5) Urine Epithelial Cells (Auto) 20-30 /lpf (0-5) Urine Bacteria (Auto) NEG (NEG) White Blood Count 11.05 K/uL (4.8-10.8) Red Blood Count 4.26 M/uL (4.2-5.4) Hemoglobin 12.2 g/dL (12.0-16.0) Hematocrit 36.7 % (37-47) Mean Corpuscular Volume 86.2 fL (80-100) Mean Corpuscular Hemoglobin 28.6 pg (25-34) Mean Corpuscular Hemoglobin Concent 33.2 g/dl (32-36) Platelet Count 330 K/uL (130-400) Mean Platelet Volume 9.1 fL (7.4-10.4) Neutrophils (%) (Auto) 65.2 % Lymphocytes (%) (Auto) 24.2 % Monocytes (%) (Auto) 8.6 % Eosinophils (%) (Auto) 1.3 % Basophils (%) (Auto) 0.4 % Neutrophils # (Auto) 7.22 K/uL (1.4-6.5) Lymphocytes # (Auto) 2.67 K/uL (1.2-3.4) Monocytes # (Auto) 0.95 K/uL (0.11-0.59) Eosinophils # (Auto) 0.14 K/uL (0-0.5) Basophils # (Auto) 0.04 K/uL (0-0.2) RDW Standard Deviation 45.0 fL (36.4-46.3) RDW Coefficient of Variation 14.4 % (11.5-14.5) Immature Granulocyte % (Auto) 0.3 % Immature Granulocyte # (Auto) 0.03 K/uL (0.00-0.02) Anion Gap 12.0 mmol/L (3-11) Est Creatinine Clear Calc Drug Dose 42.5 ml/min Estimated GFR () 55.1 Estimated GFR (Non- 47.5 BUN/Creatinine Ratio 25.7 (10-20) Calcium Level 9.2 mg/dl (8.5-10.1) Magnesium Level 1.6 mg/dl (1.8-2.4) Total Bilirubin 0.5 mg/dl (0.2-1) Direct Bilirubin mg/dl (0-0.2) Aspartate Amino Transf (AST/SGOT) 19 U/L (15-37) Alanine Aminotransferase (ALT/SGPT) 15 U/L (12-78) Alkaline Phosphatase 82 U/L (45-117) Total Protein 7.6 gm/dl (6.4-8.2) Albumin 3.5 gm/dl (3.4-5.0) Lipase 162 U/L (73-393) Thyroid Stimulating Hormone (TSH) 1.250 uIu/ml (0.300-4.500) Chemistry Specimen Hemolysis Bedside Troponin I < 0.030 ng/ml (0-0.045) Laboratory results per my review. Medications Administered Medications (Trade) Dose Ordered Sig/Miah Route Start Time Stop Time Status Last Admin Dose Admin Sodium Chloride 500 ml @ 999 mls/hr Q31M STAT IV 07/03/17 10:47 07/03/17 11:17 DC 07/03/17 11:14 999 MLS/HR Sodium Chloride 1,000 ml @ 125 mls/hr Q8H STAT IV 07/03/17 10:47 07/03/17 18:46 07/03/17 13:14 125 MLS/HR Ondansetron HCl (Zofran Inj) 4 mg NOW STAT IV 07/03/17 11:57 07/03/17 11:58 DC 07/03/17 13:02 4 MG Morphine Sulfate (MoRPHine SULFATE INJ) 4 mg NOW STAT IV 07/03/17 11:57 07/03/17 11:58 DC 07/03/17 13:02 4 MG ECG Indication: abdominal pain Rate (beats per minute): 75 Rhythm: normal sinus Findings: no acute ischemic change, no ectopy, other (nonspecific ST change) ED Course 1032: Past medical records reviewed. The patient was evaluated in room B8. A complete history and physical examination was performed. 1047: Ordered NSS 1000 ml @ 125 mls/hr IV, NSS 500 ml @ 999 mls/hr IV. 1157: Ordered Morphine Sulfate Inj 4 mg IV, Zofran Inj 4 mg IV. 1419: Upon reevaluation, the patient appeared to have improvement of her symptoms. I discussed findings with her. She verbalized agreement of the treatment plan. She was discharged home. Medical Decision Differential diagnosis: Etiologies such as appendicitis, diverticulitis, PUD, biliary pathology, UTI, pancreatitis, obstruction, mesenteric ischemia, aortic pathology, infections, inflammatory bowel disease, renal colic, as well as others were entertained. This patient was evaluated and appeared to be in no significant distress. Patient's physical exam reveals an epigastric abdominal tenderness. Laboratory work is fairly unrevealing, urinalysis is negative. Patient continued to complain of discomfort and was given IV morphine and Zofran which alleviated some discomfort. She was hydrated with normal saline solution. The patient CT scan of the abdomen and pelvis reveals some left renal scarring however the urinalysis is negative. I do not suspect this is an acute pathology. The patient states she has history of renal stones as well as procedures which are likely the etiology of this finding. The patient was placed on Prilosec 20 mg daily. She will continue her Zantac as needed. She'll follow-up with her PCP this week and her urologist, Dr. Louis for reevaluation. Patient will return to the ER for worsening of symptoms or any medical concerns. Medication Reconcilliation Current Medication List: was personally reviewed by me Blood Pressure Screening Patient's blood pressure: Normal blood pressure Impression Primary Impression: Epigastric abdominal pain Scribe Attestation The scribe's documentation has been prepared under my direction and personally reviewed by me in its entirety. I confirm that the note above accurately reflects all work, treatment, procedures, and medical decision making performed by me. Departure Information Dispostion Home / Self-Care Prescriptions Omeprazole (PRILOSEC) 20 Mg Capcr 20 MG PO DAILY for 14 Days, #14 CAP Prov: Shanice Hernandez M.D. 07/03/17 Referrals No Doctor, Assigned (PCP) Patricia Davison M.D. Forms Call Back Authorization, HOME CARE DOCUMENTATION FORM, IMPORTANT VISIT INFORMATION Patient Instructions My [facility] Additional Instructions Diagnosis: Epigastric abdominal pain Continue medications as prescribed. Prilosec 20 mg daily for the next 2 weeks. Zantac 150 mg twice daily as needed. Avoid aspirin until you follow up with your PCP. Contact your physician for reevaluation within the next 1-2 weeks. Return to the emergency department for worsening of symptoms or any medical concerns.
[2017-07-03] MEDS ORDERED: SODIUM CHLORIDE 0.9% 500ML 500 ML IV STA (10:47)
[2017-07-03] MEDS ORDERED: SODIUM CHLORIDE 0.9% 1000ML 1,000 ML IV STA (10:47)
[2017-07-03 11:28] LABS: BASO % 0.4 %; BASO ABS # 0.04 K/uL (0-0.2); EOS % 1.3 %; EOS ABS # 0.14 K/uL (0-0.5); HEMATOCRIT 36.7 % (37-47); HEMOGLOBIN 12.2 g/dL (12.0-16.0); IG# 0.03 K/uL (0.00-0.02); LYMPH % 24.2 %; LYMPH ABS # 2.67 K/uL (1.2-3.4); MEAN CELL VOLUME 86.2 fL (80-100); MEAN CORPUSCULAR HEMOGLOBIN 28.6 pg (25-34); MEAN CORPUSCULAR HGB CONC 33.2 g/dl (32-36); MEAN PLATELET VOLUME 9.1 fL (7.4-10.4); MONO % 8.6 %; MONO ABS # 0.95 K/uL (0.11-0.59); NEUT % 65.2 %; NEUT ABS # 7.22 K/uL (1.4-6.5); PLATELET COUNT 330 K/uL (130-400); RED CELL DISTRIBUTION WIDTH CV 14.4 % (11.5-14.5); WHITE BLOOD COUNT 11.05 K/uL (4.8-10.8)
[2017-07-03] MEDS ORDERED: CYNI1000 IM (11:44)
[2017-07-03] MEDS ORDERED: MECL1TAB42 PO (11:44)
[2017-07-03] MEDS ORDERED: BUSP1TAB46 PO (11:44)
[2017-07-03] MEDS ORDERED: TROS20TA3 PO (11:44)
[2017-07-03] MEDS ORDERED: STEROID INJECTION INJ (11:48)
[2017-07-03 11:54] LABS: CREATININE 1.17 mg/dl (0.60-1.20)
[2017-07-03 11:55] LABS: ALBUMIN 3.5 gm/dl (3.4-5.0); CALCIUM 9.2 mg/dl (8.5-10.1); POTASSIUM 4.4 mmol/L (3.5-5.1)
[2017-07-03 12:03] LABS: TOTAL PROTEIN 7.6 gm/dl (6.4-8.2)
[2017-07-03] MEDS: ONDANSETRON INJ 2 MG/ML 2 ML VIAL IV STA ×2 (12:28→13:02)
[2017-07-03] MEDS: MoRPHine SULFATE 4 MG/ML 1 ML CARP\\VIAL IV STA ×2 (12:29→13:02)
[2017-07-03] MEDS ORDERED: OPTIRAY 320 IV PRN (13:30)
--- NOTE | 2017-07-03 13:51 | DIAGNOSTIC IMAGING REPORT ---
ABDOMEN AND PELVIS CT WITH IV CONTRAST CT DOSE: 379.19 mGy.cm HISTORY: Acute left upper quadrant abdominal pain LUQ abd pain TECHNIQUE: Multiaxial CT images of the abdomen and pelvis were performed following the use of intravenous contrast. A dose lowering technique was utilized adhering to the principles of ALARA. COMPARISON STUDY: CT 03/31/2017. FINDINGS: Minimal dependent bibasilar atelectasis. Small left Bochdalek hernia. Linear subsegmental atelectasis or scarring of the inferior segment lingula. There is no pneumatosis or pneumoperitoneum. Calcifications of the mitral annulus are noted. Focal area of low-attenuation is again seen involving segment IV of the left hepatic lobe, 1.3 cm suggesting a hepatic cyst, unchanged. Liver is otherwise unremarkable. There is no intrahepatic biliary ductal dilation. The spleen, pancreas, gallbladder and adrenal glands are within normal limits. 4 mm nonobstructing calculus of the interpolar right kidney is noted. 8 mm nonobstructing calculus of the inferior pole left kidney. There is mild proximal thinning and cortical scarring noted on the right. Areas of severe parenchymal thinning and cortical scarring are noted on the left with areas of low-attenuation suggesting renal cyst. Mild nonspecific bilateral perinephric stranding. Again, there is urothelial thickening on the left, nicely seen at the level the renal pelvis. No ureteral calculi or obstructive uropathy identified. There is a punctate calculus noted within the central dependent urinary bladder lumen on image 389 series 3. Calcified 9 mm right uterine fibroid. Calcifications of the left uterus likely reflect additional calcified fibroids. No adnexal mass. Moderate atherosclerosis of the aorta. No pathologic adenopathy identified. There is a large duodenal diverticulum noted. No bowel obstruction. Mild prominence of small bowel noted within the upper abdomen measuring up to 2.9 cm, nonspecific and appears unchanged. Mild to moderate sigmoid diverticulosis without CT evidence of acute diverticulitis. Normal appendix. Soft tissues are unremarkable. Bones appear intact. IMPRESSION: 1. Mild to moderate sigmoid colon diverticulosis without CT evidence of acute diverticulitis. 2. Bilateral nephrolithiasis without ureteral calculi or obstructive uropathy. 3. Extensive cortical scarring of the left kidney redemonstrated with urothelial thickening seen greatest at the level the renal pelvis. Correlate with urinalysis to exclude ureteritis. 4. Large duodenal diverticulum again seen without evidence of bowel obstruction. 5. Normal appendix. 6. Additional findings as above. Electronically signed by: Nitesh Pathak M.D. 07/03/2017 1:50 PM Dictated Date/Time: 07/03/2017 1:40 PM
[2017-07-03 14:27] VITALS: BP 136/82; PULSE 77; O2SAT 98
[2017-07-03] MEDS ORDERED: PRLSR20 PO (14:34)
== END 2017-07-03 15:16 | disposition home or self-care (01) ==
LOC: C.EDB 10:07
DX: R10.13 Epigastric pain (principal); K31.84 Gastroparesis; Z87.440 Personal history of urinary (tract) infections; N28.9 Disorder of kidney and ureter, unspecified; D64.9 Anemia, unspecified; Z86.718 Personal history of other venous thrombosis and embolism; F32.9 Major depressive disorder, single episode, unspecified; E11.9 Type 2 diabetes mellitus without complications; F41.9 Anxiety disorder, unspecified; I10 Essential (primary) hypertension; Z87.442 Personal history of urinary calculi; Z86.010 Personal history of colon polyps; Z83.3 Family history of diabetes mellitus; Z83.79 Family history of other diseases of the digestive system; Z82.49 Family history of ischemic heart disease and other diseases of the circulatory system; Z79.82 Long term (current) use of aspirin; Z79.899 Other long term (current) drug therapy

== ENCOUNTER → 2017-09-19 | Outpatient (CLI) | payer OTHER ==
[~2017-09-19] MED LIST changes: -BNT10 PO; -BUPR100T8 PO; +BUSP1TAB46 PO; -CPR500 PO; -CYAN3INJ IM; +CYNI1000 IM; +MECL1TAB42 PO; -MISCCAP80 PO; -NYSCR30 EXT; +STEROID INJECTION INJ; +TROS20TA3 PO
--- NOTE | 2017-09-19 10:02 | DIAGNOSTIC IMAGING REPORT ---
KUB CLINICAL HISTORY: Nephrolithiasis. FINDINGS: An AP supine abdominal radiograph is compared to study dated 10/07/2016 and correlated with abdominal CT dated 07/03/2017. There is a nonobstructed abdominal bowel gas pattern noting moderate colonic fecal retention. A 6 mm nonobstructing calculus is again seen projecting over the left kidney. A small nonobstructing calculus also projects over the right kidney. No calculi are seen projecting along the course of the ureters. Phleboliths are observed in the pelvis. The skeletal structures are osteopenic. Lumbosacral spondylosis is observed. IMPRESSION: 1. Bilateral nonobstructing renal calculi as above. 2. Moderate constipation. Electronically signed by: Froilan Guido M.D. 09/19/2017 10:00 AM Dictated Date/Time: 09/19/2017 9:59 AM
== END | disposition home or self-care (01) ==
LOC: C.RAD 09:32
PROVIDERS: ATTEND Urology
DX: R39.15 Urgency of urination (principal); N39.0 Urinary tract infection, site not specified; N39.41 Urge incontinence; N13.2 Hydronephrosis with renal and ureteral calculous obstruction; K59.00 Constipation, unspecified